=== PATIENT | female | born 1995 | race Asian ===

== ENCOUNTER 2019-08-07 21:26 | Emergency (ER) | payer OTHER ==
--- NOTE | 2019-08-07 22:36 | ED ---
Skin Complaint - HPI Summary HPI Summary: This patient is a 23 year old F presenting to [facility] with a chief complaint of worsening swelling and itchiness since 08/02/19. Pt reports she came back from [place] on 08/02/19, but she has been feeling extreme fatigue since them. She was staying in nice hotels in [place]. She also reports she touched and fed stray dogs in [place]. However she has not seen any rashes or bites on her skin. Pt had a fever couple days ago, but has since recovered. Patient denies abdominal pain, vomiting, nausea - History of Current Complaint Chief Complaint: EDRashSkinAbscess Time Seen by Provider: 08/07/19 22:26 Stated Complaint: ITCHING RASHY PER PT Hx Obtained From: Patient Onset/Duration: Started Days Ago Skin Exposure Onset/Duration: Days Ago Timing: Constant Onset Severity: Mild Current Severity: Mild Pain Intensity: 3 Pain Scale Used: 0-10 Numeric Skin Location: Diffuse Character: Swelling Aggravating Symptom(s): Nothing Alleviating Symptom(s): Nothing Associated Signs & Symptoms: Negative - Allergy/Home Medications Allergies/Adverse Reactions: Allergies Allergy/AdvReac Type Severity Reaction Status Date / Time No Known Allergies Allergy Verified 08/07/19 23:27 PMH/Surg Hx/FS Hx/Imm Hx Sensory History: Denies: Hx Legally Blind, Hx Deafness EENT History: Denies: Hx Deafness - Surgical History Surgery Procedure, Year, and Place: [facility] Infectious Disease History: No Infectious Disease History: Reports: Traveled Outside the [place] in Last 30 Days - [place] - Family History Known Family History: Negative: Hypertension, Diabetes - Social History Occupation: Student Alcohol Use: None Substance Use Type: Reports: None Smoking Status (MU): Former Smoker Review of Systems Positive: Fatigue Negative: Abdominal Pain, Vomiting, Nausea Positive: Other - swelling, itchiness All Other Systems Reviewed And Are Negative: Yes Physical Exam - Summary Physical Exam Summary: Appearance: Well-appearing, Well-nourished, lying in bed comfortably Skin: Warm, dry, no obvious rash, few areas of superficial exfoliation Eyes: sclera anicteric, no conjunctival pallor ENT: mucous membranes moist, pharynx appears normal Neck: Supple, nontender Respiratory: Clear to auscultation, no signs of respiratory distress Cardiovascular: Normal S1, S2. No murmurs. Normal distal pulses in tibial and radial bilaterally. Abdomen: Soft, nontender, normal active bowel sounds present Musculoskeletal: Normal, Strength/ROM Intact Neurological: A&Ox3, awake and alert, mentation is normal, speech is fluent and appropriate Psychiatric: affect is normal, does not appear anxious or depressed Triage Information Reviewed: Yes Vital Signs On Initial Exam: Initial Vitals Temp Pulse Resp BP Pulse Ox 98.1 F 98 18 159/86 100 08/07/19 21:32 08/07/19 21:32 08/07/19 21:32 08/07/19 21:32 08/07/19 21:32 Vital Signs Reviewed: Yes Procedures - Sedation Patient Received Moderate/Deep Sedation with Procedure: No Diagnostics - Vital Signs Vital Signs Temp Pulse Resp BP Pulse Ox 08/07/19 21:32 98.1 F 98 18 159/86 100 - Laboratory Result Diagrams: 08/07/19 22:50 08/07/19 22:50 Lab Statement: Any lab studies that have been ordered have been reviewed, and results considered in the medical decision making process. Re-Evaluation - Re-Evaluation First Eval Re-Evaluation Time: 23:26 Comment: Discussed results and plan of care Course/Dx - Course Course Of Treatment: This patient is a 23 year old F presenting to [facility] with a chief complaint of worsening swelling and itchiness since 08/02/19. Pt reports she came back from [place] on 08/02/19, but she has been feeling extreme fatigue since them. She was staying in nice hotels in [place]. She also reports she touched and fed stray dogs in [place]. However she has not seen any rashes or bites on her skin. Pt had a fever couple days ago, but has since recovered. Patient denies abdominal pain, vomiting, nausea. Blood work obtained. RBC is 6.01, MCV is 78, MCH is 25. In the ED course the patient was given atarax. Patient will be discharged. The patient is agreeable with this plan. - Diagnoses Provider Diagnoses: Generalized pruritus Discharge ED - Sign-Out/Discharge Documenting (check all that apply): Patient Departure - Discharge - Discharge Plan Condition: Good Disposition: HOME Prescriptions: hydrOXYzine pamoate [Vistaril] 25 mg PO TID PRN #20 cap PRN Reason: Itching Patient Education Materials: Itchy Skin (ED) Referrals: Trevon Underwood MD [Medical Doctor] - [facility] - Timmy REEVES [Primary Care Provider] - Additional Instructions: The routine blood work we did tonight was unremarkable. I am not sure what is causing the itching, but I have prescribed some vistaril to help. If this persists, you should make an appointment with a audograph operator such as Dr. Underwood so a more comprehensive assessment can be done. - Billing Disposition and Condition Condition: GOOD Disposition: Home - Attestation Statements Document Initiated by Tova: Yes Documenting Scribe: Samara Kaye Provider For Whom Tova is Documenting (Include Credential): Jamshid Carcamo MD Scribe Attestation: I, Samara Kaye, scribed for Jamshid Carcamo MD on 08/08/19 at [id number]. Scribe Documentation Reviewed: Yes Provider Attestation: The documentation as recorded by the Samara freeamn accurately reflects the service I personally performed and the decisions made by me, Jamshid Carcamo MD Status of Scribe Document: Viewed
[2019-08-07 22:56] LABS: ABS Basophils 0.1 10^3/ul (0-0.2); ABS Eosinophils 0.4 10^3/ul (0-0.6); ABS Lymphocytes 1.6 10^3/ul (1.0-4.8); ABS Monocytes 0.7 10^3/ul (0-0.8); ABS Neutrophils 7.8 10^3/ul (1.5-7.7); Eosinophil % 3.7 %; Hematocrit 47 % (35-47); Hemoglobin 15.2 g/dL (12.0-16.0); Lymphocyte % 15.3 %; Mean Corpuscular HGB Conc 32 g/dL (31-36); Mean Corpuscular Hemoglobin 25 pg (27-31); Mean Corpuscular Volume 78 fL (80-97); Nucleated Red Blood Cells % 0.2; Platelet Count 362 10^3/uL (150-450); Red Blood Count 6.01 10^6 /uL (3.70-4.87); Red Cell Distribution Width 15 % (10-15); White Blood Count 10.6 10^3/uL (3.5-10.8)
[2019-08-07 23:14] LABS: ALT 16 U/L (7-52); AST 19 U/L (13-39); Albumin 4.8 g/dL (3.2-5.2); Albumin/Globulin Ratio 1.5 (1-3); Alkaline Phosphatase 57 U/L (34-104); Anion Gap 8 mmol/L (2-11); BUN/Creatinine Ratio 10.8 (8-20); Blood Urea Nitrogen 7 mg/dL (6-24); CO2 Carbon Dioxide 23 mmol/L (22-32); Calcium 9.6 mg/dL (8.6-10.3); Chloride 106 mmol/L (101-111); EGFR African American 139.2 (>60); EGFR Non-African American 115.1 (>60); Globulin 3.1 g/dL (2-4); Glucose 112 mg/dL (70-100); Potassium 3.7 mmol/L (3.5-5.0); Sodium 137 mmol/L (135-145); Total Protein 7.9 g/dL (6.4-8.9)
[2019-08-07 23:21] LABS: HCG Pregnancy < 0.60 mIU/mL
[2019-08-07] MEDS ORDERED: hydrOXYzine HCL TAB* 25 MG PO ONE (23:25)
[2019-08-07 23:41] VITALS: BP 120/81
[2019-08-07 23:47] LABS: TSH (Thyroid Stimulating Horm) 0.58 mcIU/mL (0.34-5.60)
[2019-08-08 14:41] LABS: HIV 4th Generation Nonreactive (Nonreactive)
== END 2019-08-07 23:35 | disposition home or self-care (01) ==
LOC: ED 21:26
DX: L29.9 Pruritus, unspecified (principal); R53.83 Other fatigue; Z87.891 Personal history of nicotine dependence
CPT/HCPCS: 36415; 80053; 84443; 84702; 85025; 87389; 99281; A9270-GY